=== PATIENT | male | born 1990 | race Asian ===

== ENCOUNTER 2020-08-19 07:58 | Outpatient (CLI) | payer OTHER ==
[2020-08-20 14:57] LABS: SARS-CoV-2 MS2 Positive; SARS-CoV-2 N Gene Negative; SARS-CoV-2 S Gene Negative; SARS-CoV-2 by NAA Not Detected (NotDetected); SARS-CoV-2 orf1ab Negative
== END 2020-08-19 07:59 | disposition home or self-care (01) ==
LOC: LABBT 07:58
PROVIDERS: ATTEND Surgery
DX: K60.3 Anal fistula (principal); Z20.828 Contact with and (suspected) exposure to other viral communicable diseases
CPT/HCPCS: 87635; U0003

== ENCOUNTER 2020-08-22 07:09 | Day surgery (SDC) | payer OTHER ==
[2020-08-20 09:32] VITALS: BMI 25.8
[2020-08-22] MEDS ORDERED: cefOXitin Sodium/Dextrose 2 GM/50 ML BAG ONE (08:04)
[2020-08-22] MEDS ORDERED: Bupivacaine/Epinephrine 0.25% 30 ML VIAL ONE ×2 (08:36→09:05)
[2020-08-22] MEDS ORDERED: Lidocaine 2% Jelly 5 ML TUBE ONE (08:36)
[2020-08-22] MEDS ORDERED: SUGAMMADEX SODIUM 200 MG/2 ML VIAL ONE (09:02)
[2020-08-22] MEDS ORDERED: Fentanyl 100 MCG/2 ML VIAL ONE (09:02)
[2020-08-22] MEDS ORDERED: Lidocaine 2% PF 5 ML VIAL ONE (09:05)
[2020-08-22] MEDS ORDERED: Dexamethasone 20 MG/5 ML VIAL ONE (09:55)
[2020-08-22] MEDS ORDERED: Lidocaine 1% PF 5 ML VIAL ONE (09:55)
[2020-08-22] MEDS ORDERED: PROPOFOL 200 MG/20 ML VIAL ONE (09:55)
[2020-08-22] MEDS ORDERED: Ondansetron PF 4 MG/2 ML Vial ONE (09:55)
[2020-08-22] MEDS ORDERED: Ketorolac Tromethamine 30 MG/ML VIAL ONE (09:55)
--- NOTE | 2020-08-22 10:51 | OP ---
DATE OF PROCEDURE: 08/22/2020 PREOPERATIVE DIAGNOSIS: [id number]. POSTOPERATIVE DIAGNOSIS: [id number]. PROCEDURE PERFORMED: Anal fistulotomy with seton placement. ANESTHESIA: General. ESTIMATED BLOOD LOSS: Minimal. COMPLICATIONS: None. FINDINGS: Transsphincteric fistula. TECHNIQUE: The patient was taken to the operating room and laid supine on the operating room table. After general anesthetic was obtained, he was placed in lithotomy position. His perineum was prepped and draped in a sterile fashion. An elliptical incision was made over the palpable abnormality on the external side. A cystic structure with purulence was entered. A fistula probe was used to probe this and communicates into the anal canal. It goes around just a small amount of the external sphincter muscle. The outside opening was enlarged and irrigated, and all cyst-type component was removed and chronic scar tissue. The base was cauterized. An 0 silk seton was left around the sphincter muscle. The most lateral aspect of the outside opening was closed using 3-0 Vicryl. Wet-to-dry saline-soaked gauze was used to pack the external opening. The patient was sent to Recovery in stable condition. All instrument counts, needle counts, lap counts were correct. Job ID: [id number]
== END 2020-08-22 11:40 | disposition home or self-care (01) ==
LOC: SDC 07:09
PROVIDERS: ATTEND Surgery
PROC: 0DBQ3ZZ Excision of Anus, Percutaneous Approach (ICD-10-PCS; principal; 2020-08-22)
DX: K61.0 Anal abscess (principal)
CPT/HCPCS: 88304; J0694; J1100; J1885; J2405; J2704; J3010

== ENCOUNTER 2022-05-26 14:50 | Outpatient (CLI) | payer OTHER ==
[2022-05-26 16:57] LABS: #Eosinphils 0.3 10x3/uL (0.0-0.5); #Monocytes 0.4 10x3/uL (0.0-1.1); %Basophils 0.3 % (0.0-2.0); %Eosinophils 3.8 % (0.0-6.0); %Lymphocytes 28.6 % (18.0-47.0); %Monocytes 5.8 % (0.0-10.0); %Neutrophils 61.3 % (40.0-75.0); Mean Corpuscular HGB CONC 33.3 g/dL (32.0-36.0); Mean Corpuscular Hemoglobin 28.9 pg (27.0-33.0); Mean Corpuscular Volume 86.8 fl (81.2-95.1); Platelet Count 236 10x3/uL (150-450); RBC Distribution Width 12.2 % (11.5-14.5); Red Blood Cell (RBC) Count 5.53 10x6/uL (4.32-5.72); White Blood Cell (WBC) Count 6.6 10x3/uL (3.5-10.5)
[2022-05-26 17:19] LABS: Anion Gap 18 mmol/L (10-20); BUN (Urea Nitrogen) 23 mg/dL (8.9-20.6); Calc. Creatinine Clearance 0 mL/min (70-130); Calcium 9.9 mg/dL (7.8-10.44); Carbon Dioxide 28 mmol/L (22-29); Chloride 102 mmol/L (98-107); Estimated GFR 90; Glucose 89 mg/dL (70-105); Potassium 4.5 mmol/L (3.5-5.1); Sodium 143 mmol/L (136-145)
== END 2022-05-26 14:51 | disposition home or self-care (01) ==
LOC: LABBT 14:50
PROVIDERS: ATTEND Surgery
DX: Z01.818 Encounter for other preprocedural examination (principal); K60.3 Anal fistula
CPT/HCPCS: 80048; 85025; 87811

== ENCOUNTER 2022-05-28 06:32 | Day surgery (SDC) | payer OTHER ==
[2022-05-26 14:22] VITALS: BMI 23.1
[2022-05-28] MEDS ORDERED: fentaNYL Citrate/PF 100 MCG/2 ML SYRINGE ONE (08:55)
[2022-05-28] MEDS ORDERED: Bupivacaine 0.25% HCL 30 ML VIAL ONE (09:00)
[2022-05-28] MEDS ORDERED: Lidocaine 2% 6 ML SYR ONE (09:00)
[2022-05-28] MEDS ORDERED: Sodium Chloride 0.9% 100 ML ONE (09:06)
[2022-05-28] MEDS ORDERED: cefOXitin 2 GM VIAL ONE (09:06)
[2022-05-28] MEDS ORDERED: Succinylcholine 200 MG/10 ml SYRINGE FS ONE (09:15)
[2022-05-28] MEDS ORDERED: Ketorolac Tromethamine 30 MG/ML VIAL ONE (09:15)
[2022-05-28] MEDS ORDERED: Ondansetron PF 4 MG/2 ML Vial ONE (09:15)
[2022-05-28] MEDS ORDERED: Lidocaine 1% PF 5 ML VIAL ONE (09:15)
[2022-05-28] MEDS ORDERED: PROPOFOL 200 MG/20 ML VIAL ONE (09:15)
[2022-05-28] MEDS ORDERED: Dexamethasone 20 MG/5 ML VIAL ONE (09:15)
== END 2022-05-28 11:36 | disposition home or self-care (01) ==
LOC: SDC 06:32
PROVIDERS: ATTEND Surgery
PROC: 0DQQXZZ Repair Anus, External Approach (ICD-10-PCS; principal; 2022-05-28)
DX: K60.3 Anal fistula (principal); Z91.011 Allergy to milk products; Z91.018 Allergy to other foods
CPT/HCPCS: J0694; J1100; J1885; J2405; J2704; J3490; S0020